=== PATIENT | male | born 1960 | race African-American/Black ===

== ENCOUNTER 2018-05-26 14:42 | Emergency (ER) | payer BC, OTHER ==
[~2018-05-26] VITALS: Ht 188 cm; Wt 94.2 kg
[~2018-05-26 14:42] MED LIST: ONE DAILY TABL1 EAC1 PO; ULTRAM50 MG PO
[2018-05-26 18:13] VITALS: BP 136/72
== END 2018-05-26 18:24 | disposition left against medical advice (07) ==
LOC: EME 14:42
DX: F10.20 Alcohol dependence, uncomplicated (principal)
CPT/HCPCS: 99281; 99283

== ENCOUNTER 2018-06-19 17:07 | Emergency (ER) | payer BC ==
[~2018-06-19] VITALS: Ht 188 cm; Wt 91.4 kg
[2018-06-19 18:00] LABS: HEMATOCRIT 45.2 % (38.0-50.0); HEMOGLOBIN 16.5 G/DL (12.5-16.6); MCH 29.8 PG (29.0-34.0); MCHC 36.5 G/DL (30.0-36.0); MCV 81.6 FL (86-99); PLATELET COUNT 242 K/uL (156-360); RBC DIS.WIDTH-CV 13.5 % (11.8-14.6); RBC DIS.WIDTH-SD 40.3 % (39-53); RED BLOOD COUNT 5.54 M/uL (4.00-5.50)
[2018-06-19 18:03] LABS: AMPHETAMINE NEGATIVE (500 ng/mL); BARBITURATES NEGATIVE (200 ng/mL); BENZODIAZEPINES NEGATIVE (150 ng/mL); BUPRENORPHINE NEGATIVE (10 ng/mL); COCAINE NEGATIVE (150 ng/mL); METHADONE NEGATIVE (200 ng/mL); METHAMPHETAMINE NEGATIVE (500 ng/mL); OPIATES (MORPHINE) NEGATIVE (100 ng/mL); OXYCODONE NEGATIVE (100 ng/mL); PHENCYCLIDINE NEGATIVE (25 ng/mL); PROPOXYPHENE NEGATIVE (300 ng/mL); THC CANNABINOIDS NEGATIVE (50 ng/mL); TRICYCLIC ANTIDEPRESSANTS NEGATIVE (300 ng/mL)
[2018-06-19 18:11] LABS: CHLORIDE 105 mEq/L (99-109); POTASSIUM 3.8 mEq/L (3.7-5.4); SODIUM 143 mEq/L (136-147)
[2018-06-19 18:13] LABS: GLUCOSE 105 mg/dL (70-99)
[2018-06-19 18:16] LABS: SERUM ETHYL ALCOHOL 308 mg/dL
[2018-06-19 18:17] LABS: CREATININE 1.1 mg/dL (0.6-1.3); GFR ESTIMATE (CALCULATED) > 59 mL/min/ (58.99-99999); UREA NITROGEN (BUN) 7 mg/dL (9-23)
[2018-06-20 03:09] VITALS: BP 115/70
== END 2018-06-20 03:09 | disposition home or self-care (01) ==
LOC: EME 17:07
DX: F32.9 Major depressive disorder, single episode, unspecified (principal); F10.129 Alcohol abuse with intoxication, unspecified; Y90.8 Blood alcohol level of 240 mg/100 ml or more; Z87.19 Personal history of other diseases of the digestive system
CPT/HCPCS: 80048; 85027; 99281; 99285; G0480

== ENCOUNTER 2018-06-21 07:17 | Emergency (ER) | payer BC ==
[~2018-06-21] VITALS: Ht 188 cm; Wt 91.7 kg
[2018-06-21 07:55] LABS: BASOPHIL (%) 0 % (0-1); EOSINOPHIL (%) 0.3 % (0-5); HEMATOCRIT 44.6 % (38.0-50.0); HEMOGLOBIN 16.1 G/DL (12.5-16.6); IMMATURE GRANULOCYTE (%) 0.3 % (0.0-0.7); LYMPHOCYTE (%) 32.1 % (15-42); LYMPHOCYTE COUNT 1.2 K/uL (1.0-2.8); MCHC 36.1 G/DL (30.0-36.0); MCV 83.2 FL (86-99); MONOCYTE (%) 12.8 % (3-12); MONOCYTE COUNT 0.5 K/uL (0-0.8); NEUTROPHIL (%) 54.5 % (45-76); PLATELET COUNT 197 K/uL (156-360); RBC DIS.WIDTH-CV 13.5 % (11.8-14.6); RBC DIS.WIDTH-SD 40.7 % (39-53); RED BLOOD COUNT 5.36 M/uL (4.00-5.50); WHITE BLOOD COUNT 3.7 K/uL (4.1-10.2)
[2018-06-21 08:03] LABS: CHLORIDE 106 mEq/L (99-109); POTASSIUM 3.6 mEq/L (3.7-5.4); SODIUM 144 mEq/L (136-147)
[2018-06-21 08:04] LABS: GLUCOSE 100 mg/dL (70-99)
[2018-06-21 08:08] LABS: CREATININE 1.2 mg/dL (0.6-1.3); GFR ESTIMATE (CALCULATED) > 59 mL/min/ (58.99-99999); SERUM ETHYL ALCOHOL < 10 mg/dL
[2018-06-21 08:09] LABS: UREA NITROGEN (BUN) 6 mg/dL (9-23)
[2018-06-21 08:27] LABS: APPEARANCE CLEAR ((CLEAR)); BENZODIAZEPINES NEGATIVE (150 ng/mL); BILIRUBIN NEGATIVE; BLOOD SMALL; COCAINE NEGATIVE (150 ng/mL); COLOR AMBER ((YELLOW)); GLUCOSE (STRIP) NEGATIVE; KETONES 20; LEUKOCYTES NEGATIVE; METHAMPHETAMINE NEGATIVE (500 ng/mL); NITRITE NEGATIVE; OPIATES (MORPHINE) NEGATIVE (100 ng/mL); PHENCYCLIDINE NEGATIVE (25 ng/mL); PROTEIN (STRIP) 100; SPECIFIC GRAVITY 1.018 (1.000-1.030); THC CANNABINOIDS NEGATIVE (50 ng/mL); TRICYCLIC ANTIDEPRESSANTS NEGATIVE (300 ng/mL)
[2018-06-21 08:28] LABS: AMPHETAMINE NEGATIVE (500 ng/mL); BARBITURATES NEGATIVE (200 ng/mL); BUPRENORPHINE NEGATIVE (10 ng/mL); METHADONE NEGATIVE (200 ng/mL); OXYCODONE NEGATIVE (100 ng/mL); PROPOXYPHENE NEGATIVE (300 ng/mL)
[2018-06-21 08:31] LABS: BACTERIA NONE SEEN /HPF; EPITHELIAL CELLS NONE SEEN /HPF; MUCUS TRACE /LPF; RED BLOOD CELLS 0-5 /HPF (0-5); WHITE BLOOD CELLS 0-5 /HPF (0-5)
[2018-06-21 09:18] VITALS: BP 155/99
== END 2018-06-21 09:21 | disposition home or self-care (01) ==
LOC: EME 07:17
PROVIDERS: Emergency Medicine
DX: F32.9 Major depressive disorder, single episode, unspecified (principal); F41.9 Anxiety disorder, unspecified
CPT/HCPCS: 80048; 81003; 85025; 99281; 99284; G0480